=== PATIENT | male | born 1945 | race Caucasian/White ===

== ENCOUNTER 2017-07-02 17:26 | Emergency (ER) | payer MEDICARE ==
[~2017-07-02] VITALS: Ht 167.6 cm; Wt 74.8 kg
[~2017-07-02 17:26] MED LIST: ALBU90OI61 INH; CIPR500 PO; DOCU100 PO; FLUSAL2505 INH; HYDR1TAB94 PO; Omeprazole20 M1 PO; PRAV20 PO; TAMS.4ER PO; TIOT18 INH
[2017-07-02 18:27] LABS: BASOPHILS ABSOLUTE AUTO 0.06 K/mm3 (0.00-0.23); BASOPHILS PERCENT AUTO 1 % (0-2); EOSINOPHILS ABSOLUTE AUTO 1.22 K/mm3 (0.00-0.68); EOSINOPHILS PERCENT AUTO 11 % (0-6); Hematocrit 43.9 % (37.0-53.0); Hemoglobin 14.8 g/dL (13.5-17.5); IMMATURE GRAN ABSOLUTE AUTO 0.06 K/mm3 (0.00-0.10); IMMATURE GRAN PERCENT AUTO 1 % (0-1); LYMPHOCYTES ABSOLUTE AUTO 2.37 K/mm3 (0.84-5.20); LYMPHOCYTES PERCENT AUTO 21 % (21-46); MONOCYTES ABSOLUTE AUTO 0.98 K/mm3 (0.16-1.47); MONOCYTES PERCENT AUTO 9 % (4-13); Mean Corpuscular HGB 29.8 pg (26.0-34.0); Mean Corpuscular HGB Conc 33.7 g/dL (31.5-36.5); Mean Corpuscular Volume 89 fL (80-100); NEUTROPHILS ABSOLUTE AUTO 6.45 K/mm3 (1.96-9.15); NEUTROPHILS PERCENT AUTO 58 % (41-73); Platelet Count 328 K/mm3 (150-400); RDW Coefficient Variation 13.9 % (11.7-14.2); RDW Standard Deviation 45.3 fL (35.1-46.3); Red Blood Cell Count 4.96 M/mm3 (4.30-5.90); White Blood Cell Count 11.14 K/mm3 (4.00-11.30)
[2017-07-02 18:41] LABS: International Normalized Ratio 0.96
[2017-07-02 18:43] LABS: Alanine Aminotransfer (ALT/SGP 33 U/L (12-78); Albumin, Blood 4.2 g/dL (3.4-5.0); Albumin/Globulin Ratio 1.3 (0.8-1.8); Alk Phos 152 U/L (50-136); Anion Gap 10 mmol/L (6-16); Aspartate Aminotrans (AST/SGOT 20 U/L (12-37); Bilirubin, Total 0.4 mg/dL (0.1-1.0); Blood Urea Nitrogen 10 mg/dL (8-24); Bun/Creatinine Ratio 11.2 (12.0-20.0); CO2, Blood 24 mmol/L (21-32); Calcium, Blood 8.8 mg/dL (8.5-10.1); Chloride, Blood 109 mmol/L (98-108); Creatinine, Blood 0.89 mg/dL (0.60-1.20); Globulin, Blood 3.2 g/dL (2.2-4.0); Glomerular Filtration Rate >60 (60-); Glucose, Blood 105 mg/dL (70-99); Magnesium, Blood 2.3 mg/dL (1.6-2.4); Potassium, Blood 3.7 mmol/L (3.5-5.5); Sodium, Blood 143 mmol/L (136-145); Total Protein, Blood 7.4 g/dL (6.4-8.2); Troponin I <0.015 ng/mL (0.000-0.040)
[2017-07-02 18:53] LABS: Base Excess Venous -0.1 mmol/L; PCO2 Venous 44.4 mmHg (38-42); PO2 Venous 59.4 mmHg (38-42); pH Blood Venous 7.36 (7.34-7.37)
[2017-07-02 19:12] LABS: U Amphetamine Screen Not Detected; U Barbituate Screen Not Detected; U Benzodiazapine Screen Not Detected; U Buprenorphine Screen Not Detected; U Cannabinoids Screen Not Detected; U Cocaine Screen Not Detected; U Methadone Screen Not Detected; U Methamphetamine Screen Not Detected; U Opiates Screen Not Detected; U Oxycodone Screen Not Detected; U Phencyclidine Screen Not Detected; U Propoxyphene Screen Not Detected
[2017-07-02] MEDS ORDERED: PRED20 PO (19:23)
[2017-07-02] MEDS ORDERED: ALBU90OI INH (19:23)
[2018-05-27] MEDS ORDERED: LEVO750 PO (22:06)
[2018-05-27] MEDS ORDERED: Prednisone20 MG PO (22:06)
== END 2017-07-02 20:12 | disposition home or self-care (01) ==
LOC: ER 17:26
PROVIDERS: Emergency Medicine
DX: J20.9 Acute bronchitis, unspecified (principal); J45.909 Unspecified asthma, uncomplicated; F17.200 Nicotine dependence, unspecified, uncomplicated; Z79.899 Other long term (current) drug therapy
CPT/HCPCS: 36415; 71046; 80053; 82803; 83735; 83880; 84443; 84484; 85025; 85610; 93005; 93010; 94640; 96365; 96366; 96375; 99283; J2930; J3475; J7030

== ENCOUNTER → 2019-06-25 | Outpatient (CLI) | payer MEDICARE ==
[~2019-06-25] MED LIST changes: +ALBU90OI INH; +LEVO750 PO; +PRED20 PO; +Prednisone20 MG PO
[2019-06-25 09:21] LABS: BASOPHILS ABSOLUTE AUTO 0.07 K/mm3 (0.00-0.23); BASOPHILS PERCENT AUTO 1 % (0-2); EOSINOPHILS ABSOLUTE AUTO 0.72 K/mm3 (0.00-0.68); EOSINOPHILS PERCENT AUTO 9 % (0-6); Hematocrit 44.5 % (37.0-53.0); Hemoglobin 15.2 g/dL (13.5-17.5); IMMATURE GRAN ABSOLUTE AUTO 0.07 K/mm3 (0.00-0.10); IMMATURE GRAN PERCENT AUTO 1 % (0-1); LYMPHOCYTES ABSOLUTE AUTO 1.58 K/mm3 (0.84-5.20); LYMPHOCYTES PERCENT AUTO 20 % (21-46); MONOCYTES ABSOLUTE AUTO 0.81 K/mm3 (0.16-1.47); MONOCYTES PERCENT AUTO 11 % (4-13); Mean Corpuscular HGB 29.6 pg (26.0-34.0); Mean Corpuscular HGB Conc 34.2 g/dL (31.5-36.5); Mean Corpuscular Volume 87 fL (80-100); Mean Platelet Volume 8.5 fL (9.1-12.4); NEUTROPHILS PERCENT AUTO 58 % (41-73); Platelet Count 337 K/mm3 (150-400); RDW Coefficient Variation 13.3 % (11.7-14.2); RDW Standard Deviation 42.2 fL (35.1-46.3); Red Blood Cell Count 5.13 M/mm3 (4.30-5.90); White Blood Cell Count 7.75 K/mm3 (4.00-11.30)
[2019-06-25 09:36] LABS: Alanine Aminotransfer (ALT/SGP 27 U/L (12-78); Albumin, Blood 4.4 g/dL (3.4-5.0); Albumin/Globulin Ratio 1.6 (0.8-1.8); Alk Phos 128 U/L (40-126); Anion Gap 12 mmol/L (6-16); Aspartate Aminotrans (AST/SGOT 20 U/L (12-37); Bilirubin, Total 0.7 mg/dL (0.1-1.0); Blood Urea Nitrogen 12 mg/dL (8-24); Bun/Creatinine Ratio 11.9 (12.0-20.0); CO2, Blood 25 mmol/L (21-32); Calcium, Blood 9.1 mg/dL (8.5-10.1); Chloride, Blood 107 mmol/L (98-108); Creatinine, Blood 1.01 mg/dL (0.60-1.20); Globulin, Blood 2.8 g/dL (2.2-4.0); Glomerular Filtration Rate >60 (60-); Glucose, Blood 112 mg/dL (70-99); Sodium, Blood 144 mmol/L (136-145); Total Protein, Blood 7.2 g/dL (6.4-8.2)
[2019-06-25 09:37] LABS: Troponin I <0.017 ng/mL (0.000-0.040)
== END | disposition home or self-care (01) ==
LOC: LAB SHORT 09:17 → LAB EV 09:17
PROVIDERS: Physician Assistant
DX: R07.9 Chest pain, unspecified (principal)
CPT/HCPCS: 80053; 84484; 85025

== ENCOUNTER 2022-05-14 08:13 | Day surgery (SDC) | payer OTHER ==
[~2022-05-14] VITALS: Ht 167.6 cm; Wt 84.3 kg
[~2022-05-14 08:13] MED LIST changes: +PREDNISONE TAPER
--- NOTE | 2022-05-14 09:19 | NUR ---
History, Chart, Medications and Allergies reviewed before start of procedure. Patient confirms NPO status and agrees with scheduled surgery. Patient States Post-Procedure ride home has been arranged with a friend.
--- NOTE | 2022-05-14 09:27 | NUR ---
FAINT INSPIRATORY WHEEZES AUSCULTATED TO UPPER POSTERIOR LOBES.
--- NOTE | 2022-05-14 15:42 | NUR ---
1330 TO STEP FROM PACU S/P TRIPLE HERNIA REPAIR 3 SMALL ABDOMINAL INCISION INTACT NO DRAINAGE WITH DERMABOND INTACT. VSS, DENIES NAUSEA ANDPAIN 08/06. 1335 PO FLUIDS AND CRACKERS GIVEN,AMARA WELL 1340 PO PAIN MED GIVEN, PT STATES "I'M READY TO GO HOME"
== END 2022-05-14 22:48 | disposition home or self-care (01) ==
LOC: ORSCMMR 08:13 → ORD 10:00 → ORSCMMR 12:00
PROVIDERS: Surgery
PROC: 8E0W4CZ Robotic Assisted Procedure of Trunk Region, Percutaneous Endoscopic Approach (ICD-10-PCS; principal; 2022-05-14 10:00)
PROC: 0YU64JZ Supplement Left Inguinal Region with Synthetic Substitute, Percutaneous Endoscopic Approach (ICD-10-PCS; principal; 2022-05-14 10:00)
DX: K40.90 Unilateral inguinal hernia, without obstruction or gangrene, not specified as recurrent (principal); K41.30 Unilateral femoral hernia, with obstruction, without gangrene, not specified as recurrent; D17.6 Benign lipomatous neoplasm of spermatic cord; J44.9 Chronic obstructive pulmonary disease, unspecified; F17.220 Nicotine dependence, chewing tobacco, uncomplicated; E11.8 Type 2 diabetes mellitus with unspecified complications; Z79.899 Other long term (current) drug therapy; K66.0 Peritoneal adhesions (postprocedural) (postinfection)
CPT/HCPCS: 49650; S2900; A9270; C1781; J0690; J1100; J1885; J2250; J2370; J2405; J2704; J2795; J3010; J7120

== ENCOUNTER 2022-09-28 08:06 | Observation (INO) | payer OTHER ==
[~2022-09-28] VITALS: Ht 167.6 cm; Wt 75.0 kg
[2022-09-28] MEDS ORDERED: OMEP20ER PO (08:34)
[2022-09-28] MEDS ORDERED: TRELEGY ELLIPT1 EACH IH (08:35)
[2022-09-28 08:47] LABS: BASOPHILS ABSOLUTE AUTO 0.11 K/mm3 (0.00-0.23); BASOPHILS PERCENT AUTO 1 % (0-2); EOSINOPHILS ABSOLUTE AUTO 1.01 K/mm3 (0.00-0.68); EOSINOPHILS PERCENT AUTO 8 % (0-6); Hematocrit 47.9 % (37.0-53.0); Hemoglobin 16.7 g/dL (13.5-17.5); IMMATURE GRAN ABSOLUTE AUTO 0.09 K/mm3 (0.00-0.10); IMMATURE GRAN PERCENT AUTO 1 % (0-1); LYMPHOCYTES ABSOLUTE AUTO 1.82 K/mm3 (0.84-5.20); LYMPHOCYTES PERCENT AUTO 15 % (21-46); MONOCYTES ABSOLUTE AUTO 1.18 K/mm3 (0.16-1.47); MONOCYTES PERCENT AUTO 10 % (4-13); Mean Corpuscular HGB 29.9 pg (26.0-34.0); Mean Corpuscular HGB Conc 34.9 g/dL (31.5-36.5); Mean Corpuscular Volume 86 fL (80-100); Mean Platelet Volume 8.5 fL (9.1-12.4); NEUTROPHILS ABSOLUTE AUTO 8.07 K/mm3 (1.96-9.15); NEUTROPHILS PERCENT AUTO 66 % (41-73); Platelet Count 356 K/mm3 (150-400); RDW Standard Deviation 40.6 fL (35.1-46.3); Red Blood Cell Count 5.58 M/mm3 (4.30-5.90); White Blood Cell Count 12.28 K/mm3 (4.00-11.30)
[2022-09-28 09:00] LABS: Base Excess Venous 1.8 mmol/L; Bicarbonate Venous 24.4 mmol/L (24.0-30.0); PCO2 Venous 53.6 mmHg (38-42); pH Blood Venous 7.32 (7.34-7.37)
[2022-09-28 09:07] LABS: Albumin, Blood 4.3 g/dL (3.4-5.0); Albumin/Globulin Ratio 1.3 (0.8-1.8); Bilirubin, Total 0.6 mg/dL (0.1-1.0); Calcium, Blood 9.3 mg/dL (8.5-10.1); Creatinine, Blood 0.92 mg/dL (0.60-1.20); Globulin, Blood 3.4 g/dL (2.2-4.0); Total Protein, Blood 7.7 g/dL (6.4-8.2)
[2022-09-28 12:27] LABS: Influenza A, PCR NEGATIVE (NEGATIVE); Influenza B, PCR NEGATIVE (NEGATIVE); Resp Syncytial Virus, PCR NEGATIVE (NEGATIVE); SARS-Cov-2 (COVID-19) PCR, MMC NEGATIVE (NEGATIVE)
[2022-09-28] MEDS ORDERED: PRAV20 PO (12:41)
[2022-09-28] MEDS ORDERED: TRAZ150T57 PO (12:41)
--- NOTE | 2022-09-28 15:31 | NUR ---
Patient is lying in bed and alert. He tells me about his medical conditions and his concerns. He shares about personal struggles, his [employer] tiffany and the people that have had impact on his life. He expresses the value that he places on prayer and so I gladly provide prayer. Pateint responds well and shows signs of being enccouraged in his tiffany.
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
[2022-09-29 04:22] LABS: BASOPHILS ABSOLUTE AUTO 0.02 K/mm3 (0.00-0.23); BASOPHILS PERCENT AUTO 0 % (0-2); EOSINOPHILS PERCENT AUTO 0 % (0-6); Hematocrit 42.5 % (37.0-53.0); Hemoglobin 14.7 g/dL (13.5-17.5); IMMATURE GRAN ABSOLUTE AUTO 0.09 K/mm3 (0.00-0.10); IMMATURE GRAN PERCENT AUTO 1 % (0-1); LYMPHOCYTES ABSOLUTE AUTO 0.76 K/mm3 (0.84-5.20); LYMPHOCYTES PERCENT AUTO 5 % (21-46); MONOCYTES ABSOLUTE AUTO 0.54 K/mm3 (0.16-1.47); MONOCYTES PERCENT AUTO 3 % (4-13); Mean Corpuscular HGB 29.2 pg (26.0-34.0); Mean Corpuscular HGB Conc 34.6 g/dL (31.5-36.5); Mean Corpuscular Volume 85 fL (80-100); Mean Platelet Volume 9.2 fL (9.1-12.4); NEUTROPHILS PERCENT AUTO 91 % (41-73); Platelet Count 339 K/mm3 (150-400); RDW Coefficient Variation 13.2 % (11.7-14.2); RDW Standard Deviation 40.2 fL (35.1-46.3); Red Blood Cell Count 5.03 M/mm3 (4.30-5.90); White Blood Cell Count 15.81 K/mm3 (4.00-11.30)
[2022-09-29 05:33] LABS: Bun/Creatinine Ratio 28.5 (12.0-20.0); Calcium, Blood 9.3 mg/dL (8.5-10.1); Creatinine, Blood 0.84 mg/dL (0.60-1.20); Potassium, Blood 3.8 mmol/L (3.5-5.5)
--- NOTE | 2022-09-29 06:09 | NUR ---
SHIFT SUMMARY PATIENT ALERT AND ORIENTED, A LITTLE HARD OF HEARING. PATIENT HAD NO COMPLAINTS OF PAIN OR SHORTNESS OF BREATH. STATES THAT HE "FEELS MUCH BETTER". PATEINT REMAINED ON ROOM AIR OVERNIGHT WITH SPO2 >90%. PATIENT HAS BEEN SINUS RHYTHM TO SINUS TACH ON TELEMETRY. HEART RATE INCREASES TO THE 120'S WITH MINIMAL EXERTION. PATIENT REPORTS THIS WAS HAPPENING PRIOR TO ADMIT WELL. WILL CONTINUE TO MONITOR. CALL LIGHT WITHIN REACH.
--- NOTE | 2022-09-29 07:09 | NUR ---
Yoav is alert, awake and asking for orange juice this morning. Vital signs taken. He says that he feels great, and hopes to go home today. Lung sounds auscultated: no adventitious sounds noted. He is lying flat in bed, without any supplemental oxygen and spo2 is 92%. His heart rate is 102 bpm at rest, sinus tachycardia.
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
--- NOTE | 2022-09-29 13:01 | NUR ---
Ambulatory in the PCU, three laps around the unit, without noted dyspnea. Occasionally coughing but spo2 95% and heart rate was 109-125 bpm. Pt denies any symptoms nor discomfort.
--- NOTE | 2022-09-29 13:43 | NUR ---
Dr. Crabtree here to see the patient.
--- NOTE | 2022-09-29 14:13 | NUR ---
EKG was done per Dr. Crabtree. It was given to the doctor in PCU.
[2022-09-29] MEDS ORDERED: AZIT500 PO (14:52)
[2022-09-29] MEDS ORDERED: CEFP200 PO (14:52)
[2022-09-29] MEDS ORDERED: IPRAT-ALBUT 0.5-3 ML INH (14:53)
[2022-09-29] MEDS ORDERED: PRED20 PO (14:53)
--- NOTE | 2022-09-29 15:59 | NUR ---
[facility] him up to take him to [facility] for pickler helper of prescriptions and then to take him home.
== END 2022-09-29 15:52 | disposition home or self-care (01) ==
LOC: ER 08:06 → PCU 08:07 → ER 12:14 → PCU 12:26
PROVIDERS: Family Medicine; ADMIT Hospitalist
DX: J44.1 Chronic obstructive pulmonary disease with (acute) exacerbation (principal); J96.00 Acute respiratory failure, unspecified whether with hypoxia or hypercapnia; E78.5 Hyperlipidemia, unspecified; Z20.822 Contact with and (suspected) exposure to COVID-19; Z87.891 Personal history of nicotine dependence
CPT/HCPCS: 0241U; 36415; 71046; 80048; 80053; 82803; 84439; 84443; 84481; 84484; 85025; 93005; 93010; 94640; 94664; 94762; 96365; 96366; 96372; 96375; 96376; 99285-25; A9270; G0378; J0456; J0696; J1650; J2930; J7050

== ENCOUNTER → 2023-06-08 | Outpatient (CLI) | payer OTHER ==
[~2023-06-08] MED LIST changes: +AZIT500 PO; +CEFP200 PO; +IPRAT-ALBUT 0.5-3 ML INH; +OMEP20ER PO; +TRAZ150T57 PO; +TRELEGY ELLIPT1 EACH IH
[2023-06-09 12:17] LABS: Stool Occult Bld Immuno 1 Negative (NEGATIVE)
== END ==
LOC: LAB 11:30 → LAB SHORT 11:30
PROVIDERS: Student in an Organized Health Care Education/Training Program
DX: R19.5 Other fecal abnormalities (principal)
CPT/HCPCS: 82274